=== PATIENT | male | born 1985 | race Caucasian/White ===

== ENCOUNTER 2017-06-27 18:54 | Emergency (ER) | payer OTHER ==
[2017-06-27] MEDS ORDERED: Aspirin Low Dose CHEW TAB* 81 MG PO ONE (19:49)
[2017-06-27 20:16] LABS: Hematocrit 40 % (42-52); Hemoglobin 13.2 g/dl (14.0-18.0); Mean Corpuscular HGB Conc 33 g/dl (31-36); Mean Corpuscular Hemoglobin 27 pg (27-31); Mean Corpuscular Volume 82 fL (80-94); Mean Platelet Volume 8 um3 (7.4-10.4); Red Blood Count 4.84 10^6/ul (4.0-5.4); Red Cell Distribution Width 15 % (10.5-15); White Blood Count 8.3 10^3/ul (3.5-10.8)
[2017-06-27 20:30] LABS: Potassium 3.5 mmol/L (3.5-5.0)
--- NOTE | 2017-06-27 20:30 | RAD ---
INDICATION: Chest pain. COMPARISON: There are no prior studies available for comparison. TECHNIQUE: A portable view of the chest was obtained. FINDINGS: Cardiac and mediastinal contours appear to be within normal limits. The lungs are underinflated and clear. No pleural effusion is seen. IMPRESSION: NO EVIDENCE FOR ACUTE DISEASE.
[2017-06-27 20:31] LABS: BUN/Creatinine Ratio 8.6 (8-20); Calcium 9.3 mg/dL (8.6-10.3); EGFR Non-African American 80.9 (>60); Globulin 2.5 g/dL (2-4); Magnesium 2.1 mg/dL (1.9-2.7); Total Bilirubin 0.4 mg/dL (0.2-1.0); Total Protein 6.5 g/dL (6.4-8.9)
[2017-06-27 20:33] LABS: Troponin I 0.02 ng/mL (<0.04)
[2017-06-27 20:56] LABS: TSH (Thyroid Stimulating Horm) 1.07 mcIU/mL (0.34-5.60)
--- NOTE | 2017-06-28 00:21 | ED ---
Elena Velasco Thomas, scribed for Jaswinder Aranda on 06/27/17 at 1957 . HPI Chest Pain - HPI Summary HPI Summary: The pt is a 32 y/o M presenting to the ED c/o a 15-minute episode of CP that woke him up this morning at 03:00. The pain was located in his central chest. The pain radiated to his left shoulder. The pain was described as burning. The pain was aggravated by nothing. His pain was alleviated by NTG. Pt additionally c/o mild SOB and mild dizziness throughout the day. Pt denies leg swelling and anxiety. He is on hydralazine and labetalol. PMHx includes HTN and GERD. The patient has been having episodes of CP for the last month. He was diagnosed with Atrial Septal Defect about a month ago. An echocardiogram has been performed but he has not yet had a stress test. - History of Current Complaint Chief Complaint: EDChestPainROMI Time Seen by Provider: 06/27/17 19:16 Hx Obtained From: Patient Onset/Duration: Started Hours Ago - onset today at 03:00, Resolved Timing: Lasting Minutes - 15 Initial Severity: Moderate Current Severity: None Pain Intensity: 0 Pain Scale Used: 0-10 Numeric Chest Pain Location: Mid Sternal Chest Pain Radiates: Yes Chest Pain Radiates To:: Shoulder - L Character: Burning Aggravating Factor(s): Nothing Alleviating Factor(s): NTG 123 Associated Signs and Symptoms: Positive: Other: - SOB, dizziness; NEGATIVE: leg swelling, anxiety Related History: Similar Episode/Dx as: - episodes of CP over the last three months - Allergy/Home Medications Allergies/Adverse Reactions: Allergies Allergy/AdvReac Type Severity Reaction Status Date / Time Lidocaine Allergy Hives Verified 06/27/17 19:01 PMH/Surg Hx/FS Hx/Imm Hx Previously Healthy: No Cardiovascular History: Reports: Hx Hypertension, Other Cardiovascular Problems/ Disorders - Hx atrial septal defect, HTN GI History: Reports: Hx Gastroesophageal Reflux Disease Infectious Disease History: No Infectious Disease History: Denies: Traveled Outside the US in Last 30 Days - Family History Known Family History: Positive: Hypertension, Other - [place] (aunt from [place] at 42) - Social History Alcohol Use: None Substance Use Type: Reports: None Smoking Status (MU): Never Smoked Tobacco Review of Systems Positive: Chest Pain Positive: Shortness Of Breath - mild Negative: Other - Leg swelling Neurological: Other - Mild dizziness Negative: Anxious All Other Systems Reviewed And Are Negative: Yes Physical Exam - Summary Physical Exam Summary: Appearance: Well appearing, no pain distress Skin: warm, dry, reflects adequate perfusion Head/face: normal Eyes: EOMI, DESIRAE ENT: normal Neck: supple, non-tender Respiratory: CTA, breath sounds present Cardiovascular: Bradycardia, regular rhythm, pulses symmetrical Abdomen: non-tender, soft Bowel: present Musculoskeletal: normal, strength/ROM intact Neuro: normal, sensory motor intact, A&Ox3 Triage Information Reviewed: Yes Vital Signs On Initial Exam: Initial Vitals Temp Pulse Resp BP Pulse Ox 98.3 F 63 12 164/102 97 06/27/17 18:55 06/27/17 18:55 06/27/17 18:55 06/27/17 18:55 06/27/17 18:55 Vital Signs Reviewed: Yes - Clinton Coma Scale Coma Scale Total: 15 Diagnostics - Vital Signs Vital Signs Temp Pulse Resp BP Pulse Ox 06/27/17 19:07 62 11 159/99 97 06/27/17 18:55 98.3 F 63 12 164/102 97 - Laboratory Lab Results: Lab Results 06/27/17 06/27/17 06/27/17 Range/Units 20:05 20:05 20:05 WBC 8.3 (3.5-10.8) 10^3/ul RBC 4.84 (4.0-5.4) 10^6/ul Hgb 13.2 L (14.0-18.0) g/dl Hct 40 L (42-52) % MCV 82 (80-94) fL MCH 27 (27-31) pg MCHC 33 (31-36) g/dl RDW 15 (10.5-15) % Plt Count 203 (150-450) 10^3/ul MPV 8 (7.4-10.4) um3 Neut % (Auto) 61.2 (38-83) % Lymph % (Auto) 26.9 (25-47) % Amelia % (Auto) 8.7 (1-9) % Eos % (Auto) 2.4 (0-6) % Baso % (Auto) 0.8 (0-2) % Absolute Neuts (auto) 5.1 (1.5-7.7) 10^3/ul Absolute Lymphs (auto) 2.2 (1.0-4.8) 10^3/ul Absolute Monos (auto) 0.7 (0-0.8) 10^3/ul Absolute Eos (auto) 0.2 (0-0.6) 10^3/ul Absolute Basos (auto) 0.1 (0-0.2) 10^3/ul Absolute Nucleated RBC 0.01 10^3/ul Nucleated RBC % 0.1 INR (Anticoag Therapy) 0.94 (0.89-1.11) APTT 22.3 L (26.0-36.3) seconds D-Dimer, Quantitative < 200 (Less Than 230) ng/mL Sodium (133-145) mmol/L Potassium (3.5-5.0) mmol/L Chloride (101-111) mmol/L Carbon Dioxide (22-32) mmol/L Anion Gap (2-11) mmol/L BUN (6-24) mg/dL Creatinine (0.67-1.17) mg/dL Est GFR ( Amer) (>60) Est GFR (Non-Af Amer) (>60) BUN/Creatinine Ratio (8-20) Glucose (70-100) mg/dL Calcium (8.6-10.3) mg/dL Magnesium (1.9-2.7) mg/dL Total Bilirubin (0.2-1.0) mg/dL AST (13-39) U/L ALT (7-52) U/L Alkaline Phosphatase (34-104) U/L Troponin I (<0.04) ng/mL B-Natriuretic Peptide 47 ( - 100) pg/mL Total Protein (6.4-8.9) g/dL Albumin (3.2-5.2) g/dL Globulin (2-4) g/dL Albumin/Globulin Ratio (1-3) TSH (0.34-5.60) mcIU/mL 06/27/17 06/27/17 Range/Units 20:05 23:13 WBC (3.5-10.8) 10^3/ul RBC (4.0-5.4) 10^6/ul Hgb (14.0-18.0) g/dl Hct (42-52) % MCV (80-94) fL MCH (27-31) pg MCHC (31-36) g/dl RDW (10.5-15) % Plt Count (150-450) 10^3/ul MPV (7.4-10.4) um3 Neut % (Auto) (38-83) % Lymph % (Auto) (25-47) % Amelia % (Auto) (1-9) % Eos % (Auto) (0-6) % Baso % (Auto) (0-2) % Absolute Neuts (auto) (1.5-7.7) 10^3/ul Absolute Lymphs (auto) (1.0-4.8) 10^3/ul Absolute Monos (auto) (0-0.8) 10^3/ul Absolute Eos (auto) (0-0.6) 10^3/ul Absolute Basos (auto) (0-0.2) 10^3/ul Absolute Nucleated RBC 10^3/ul Nucleated RBC % INR (Anticoag Therapy) (0.89-1.11) APTT (26.0-36.3) seconds D-Dimer, Quantitative (Less Than 230) ng/mL Sodium 139 (133-145) mmol/L Potassium 3.5 (3.5-5.0) mmol/L Chloride 107 (101-111) mmol/L Carbon Dioxide 27 (22-32) mmol/L Anion Gap 5 (2-11) mmol/L BUN 9 (6-24) mg/dL Creatinine 1.05 (0.67-1.17) mg/dL Est GFR ( Amer) 104.0 (>60) Est GFR (Non-Af Amer) 80.9 (>60) BUN/Creatinine Ratio 8.6 (8-20) Glucose 101 H (70-100) mg/dL Calcium 9.3 (8.6-10.3) mg/dL Magnesium 2.1 (1.9-2.7) mg/dL Total Bilirubin 0.40 (0.2-1.0) mg/dL AST 21 (13-39) U/L ALT 25 (7-52) U/L Alkaline Phosphatase 77 (34-104) U/L Troponin I 0.02 0.01 (<0.04) ng/mL B-Natriuretic Peptide ( - 100) pg/mL Total Protein 6.5 (6.4-8.9) g/dL Albumin 4.0 (3.2-5.2) g/dL Globulin 2.5 (2-4) g/dL Albumin/Globulin Ratio 1.6 (1-3) TSH 1.07 (0.34-5.60) mcIU/mL Result Diagrams: 06/27/17 20:05 06/27/17 20:05 Lab Statement: Any lab studies that have been ordered have been reviewed, and results considered in the medical decision making process. - Radiology CXR Xray Interpretation: No Acute Changes - No acute changes. ED physician has reviewed this report and agrees. Radiology Interpretation Completed By: Radiologist - EKG 19:15 Cardiac Rate: Bradycardia EKG Rhythm: Sinus Bradycardia EKG Interpretation: 53 BPM. No acute changes. Chest Pain Course/Dx - Course Assessment/Plan: The pt is a 22 y/o M presenting to the ED c/o a 15-minute episode of CP with radiation to his left shoulder that woke him up this morning at 03:00. He was diagnosed with Atrial Septal Defect about a month ago. He was given ASA in the ED course. Bloodwork was obtained. EKG shows sinus bradycardia with no acute changes. CXR shows no acute disease. The patient is diagnosed with atypical chest pain and Hx of ASD. Patient will be discharged home with follow up by primary care. - Chest Pain Differential Diagnosis/HQI/PQRI: Acute [place], Angina, Chest Wall, Lower Respiratory Infection, Other: - pneumonia - Diagnoses Provider Diagnoses: Atypical chest pain, History of atrial septal defect Discharge - Discharge Plan Condition: Stable Disposition: HOME Patient Education Materials: Chest Pain (ED) Referrals: [facility] [place] PHYSICIAN REFERRAL [Outside] - 7 Days Additional Instructions: PLEASE MAKE AN APPOINTMENT TO SEE YOUR PRIMARY CARE DOCTOR TO BE SEEN WITHIN 1 WEEK. PLEASE RETURN TO THE ED FOR ANY WORSENING OR CONCERNING SYMPTOMS. The documentation as recorded by the Elena woodruff Thomas accurately reflects the service I personally performed and the decisions made by Manoj bravo Emmanuel.
[2017-06-28 00:41] VITALS: BP 161/92
== END 2017-06-28 00:35 | disposition home or self-care (01) ==
LOC: ED 18:54
DX: R07.89 Other chest pain (principal); Q21.1 Atrial septal defect; I10 Essential (primary) hypertension; K21.9 Gastro-esophageal reflux disease without esophagitis
CPT/HCPCS: 36415; 71010; 80053; 83735; 83880; 84443; 84484; 85025; 85379; 85610; 85730; 93005; 99284; A9270-GY

== ENCOUNTER 2017-06-30 21:45 | Observation (INO) | payer OTHER ==
[2017-06-30 22:31] LABS: Hematocrit 39 % (42-52); Mean Corpuscular HGB Conc 34 g/dl (31-36); Mean Corpuscular Hemoglobin 27 pg (27-31); Mean Corpuscular Volume 82 fL (80-94); Mean Platelet Volume 8 um3 (7.4-10.4); Red Blood Count 4.74 10^6/ul (4.0-5.4); Red Cell Distribution Width 15 % (10.5-15); White Blood Count 8.2 10^3/ul (3.5-10.8)
[2017-06-30 22:47] LABS: Albumin 4.1 g/dL (3.2-5.2); BUN/Creatinine Ratio 9.3 (8-20); Calcium 9.5 mg/dL (8.6-10.3); EGFR African American 101.7 (>60); EGFR Non-African American 79.1 (>60); Globulin 2.4 g/dL (2-4); Total Bilirubin 0.3 mg/dL (0.2-1.0); Total Protein 6.5 g/dL (6.4-8.9)
[2017-07-01] MEDS ORDERED: Morphine INJ* 4 MG/ML 1 ML CARPUJECT IV ONE (00:11)
--- NOTE | 2017-07-01 01:06 | ED ---
HPI Chest Pain - HPI Summary HPI Summary: 32M w/ PMH of HTN and ASD presents with chest pain for 1 hour. He states that he is being worked up by billing collections specialist in [place] for ASD. He states has been having SOB when walking up the stairs today which is new. He was seen here three days ago for similar symptoms. The pain is located in the same area. It was in the center of his chest and radiates to the left arm. He states what is different this time as it did not resolve with ASA and 3 nitros. He was nauseous. He states that has history of HTN that there are having a hard time controlling. He states at the initial onset he had SOB and felt diaphoretic. He states still has chest pressure. The pressure is 6/10. He states that is suppose to have TOSHA scheduled. He has not had a stress test as need nuclear stress test due to knee injury. He states passed on the TOSHA may do surgery for ASD as has significant left to right shunt. His has significant cardiac family history with uncle had a heart attack at 39. grandfather at 56. He was seen here three days ago and had neg d-dimer, normal bnp. He is not a smoker. He is no diabetic. - History of Current Complaint Chief Complaint: EDChestPainROMI Time Seen by Provider: 06/30/17 21:54 Pain Intensity: 5 - Allergy/Home Medications Allergies/Adverse Reactions: Allergies Allergy/AdvReac Type Severity Reaction Status Date / Time Lidocaine Allergy Hives Verified 06/30/17 22:04 PMH/Surg Hx/FS Hx/Imm Hx Endocrine/Hematology History: Denies: Hx Anticoagulant Therapy Cardiovascular History: Reports: Hx Hypertension, Other Cardiovascular Problems/ Disorders - Hx atrial septal defect, HTN GI History: Reports: Hx Gastroesophageal Reflux Disease - Immunization History Date of Tetanus Vaccine: utd Date of Influenza Vaccine: none Infectious Disease History: No Infectious Disease History: Denies: Traveled Outside the US in Last 30 Days - Family History Known Family History: Positive: Cardiac Disease, Hypertension, Other - [place] (aunt from [place] at 42) - Social History Alcohol Use: None Substance Use Type: Reports: None Smoking Status (MU): Never Smoked Tobacco Review of Systems Negative: Fever Positive: Chest Pain Positive: Shortness Of Breath. Negative: Cough All Other Systems Reviewed And Are Negative: Yes Physical Exam Triage Information Reviewed: Yes Vital Signs On Initial Exam: Initial Vitals Temp Pulse Resp BP Pulse Ox 98.1 F 63 16 162/88 96 06/30/17 22:03 06/30/17 22:03 06/30/17 22:03 06/30/17 22:03 06/30/17 22:03 Vital Signs Reviewed: Yes Appearance: Positive: Well-Appearing Skin: Positive: Warm, Dry Head/Face: Positive: Normal Head/Face Inspection Eyes: Positive: Normal, EOMI, DESIRAE, Conjunctiva Clear ENT: Positive: Normal ENT inspection, Pharynx normal, TMs normal Respiratory/Lung Sounds: Positive: Clear to Auscultation, Breath Sounds Present Cardiovascular: Positive: Normal, RRR Abdomen Description: Positive: Nontender, Soft Bowel Sounds: Positive: Present Musculoskeletal: Positive: Normal Neurological: Positive: Normal Psychiatric: Positive: Normal - Clinton Coma Scale Coma Scale Total: 15 Diagnostics - Vital Signs Vital Signs Temp Pulse Resp BP Pulse Ox 07/01/17 00:46 12 06/30/17 22:03 98.1 F 63 16 162/88 96 - Laboratory Lab Results: Lab Results 06/30/17 06/30/17 06/30/17 Range/Units 22:27 22:27 22:27 WBC 8.2 (3.5-10.8) 10^3/ul RBC 4.74 (4.0-5.4) 10^6/ul Hgb 13.0 L (14.0-18.0) g/dl Hct 39 L (42-52) % MCV 82 (80-94) fL MCH 27 (27-31) pg MCHC 34 (31-36) g/dl RDW 15 (10.5-15) % Plt Count 225 (150-450) 10^3/ul MPV 8 (7.4-10.4) um3 Neut % (Auto) 52.4 (38-83) % Lymph % (Auto) 33.7 (25-47) % Elk % (Auto) 9.2 H (1-9) % Eos % (Auto) 3.9 (0-6) % Baso % (Auto) 0.8 (0-2) % Absolute Neuts (auto) 4.3 (1.5-7.7) 10^3/ul Absolute Lymphs (auto) 2.8 (1.0-4.8) 10^3/ul Absolute Monos (auto) 0.7 (0-0.8) 10^3/ul Absolute Eos (auto) 0.3 (0-0.6) 10^3/ul Absolute Basos (auto) 0.1 (0-0.2) 10^3/ul Absolute Nucleated RBC 0.01 10^3/ul Nucleated RBC % 0.1 Sodium 140 (133-145) mmol/L Potassium 3.0 L (3.5-5.0) mmol/L Chloride 105 (101-111) mmol/L Carbon Dioxide 27 (22-32) mmol/L Anion Gap 8 (2-11) mmol/L BUN 10 (6-24) mg/dL Creatinine 1.07 (0.67-1.17) mg/dL Est GFR ( Amer) 101.7 (>60) Est GFR (Non-Af Amer) 79.1 (>60) BUN/Creatinine Ratio 9.3 (8-20) Glucose 104 H (70-100) mg/dL Lactic Acid 1.0 (0.5-2.0) mmol/L Calcium 9.5 (8.6-10.3) mg/dL Total Bilirubin 0.30 (0.2-1.0) mg/dL AST 17 (13-39) U/L ALT 20 (7-52) U/L Alkaline Phosphatase 77 (34-104) U/L Troponin I 0.00 (<0.04) ng/mL Total Protein 6.5 (6.4-8.9) g/dL Albumin 4.1 (3.2-5.2) g/dL Globulin 2.4 (2-4) g/dL Albumin/Globulin Ratio 1.7 (1-3) Result Diagrams: 06/30/17 22:27 06/30/17 22:27 Lab Statement: Any lab studies that have been ordered have been reviewed, and results considered in the medical decision making process. - Radiology No standard instances Xray Interpretation: No Acute Changes Radiology Interpretation Completed By: ED Physician - EKG No standard instances Cardiac Rate: NL EKG Rhythm: Sinus Rhythm ST Segment: Normal EKG Interpretation: sinus rhythm, similiar to previous Chest Pain Course/Dx - Course Course Of Treatment: 32M w/ PMH of HTN and ASD presents with chest pain for 1 hour. He states that he is being worked up by billing collections specialist in [place] for ASD. He states has been having SOB when walking up the stairs today which is new. He was seen here three days ago for similar symptoms. The pain is located in the same area. It was in the center of his chest and radiates to the left arm. He states what is different this time as it did not resolve with ASA and 3 nitros. He was nauseous. He states that has history of HTN that there are having a hard time controlling. He states at the initial onset he had SOB and felt diaphoretic. He states still has chest pressure. The pressure is 6/10. He states that is suppose to have TOSHA scheduled. He has not had a stress test as need nuclear stress test due to knee injury. He states passed on the TOSHA may do surgery for ASD as has significant left to right shunt. His has significant cardiac family history with uncle had a heart attack at 39. grandfather at 56. He was seen here three days ago and had neg d-dimer, normal bnp. He is not a smoker. He is no diabetic. on exam heart RRR, lungs CTA. ekg same as previous. troponin neg. due to risk factors discussed with dr singleton who agrees to admit. patient signed out ama. - Chest Pain Differential Diagnosis/HQI/PQRI: Acute HI, Chest Wall, Pulmonary Embolism - Diagnoses Provider Diagnoses: Chest pain Discharge - Discharge Plan Condition: Stable Disposition: AGAINST MEDICAL ADVICE
[2017-07-01 01:45] VITALS: BP 167/93
[2017-07-01] MEDS ORDERED: Ondansetron INJ* 2 MG/ML VIAL IV PRN (01:53)
[2017-07-01] MEDS ORDERED: Acetaminophen TAB* 325 MG PO PRN (01:53)
[2017-07-01] MEDS ORDERED: Al Hydrox/Mg Hydrox/Simet LIQ* 30 ML UDC PO PRN (01:53)
[2017-07-01] MEDS ORDERED: traZODone TAB* 100 MG PO PRN (01:57)
[2017-07-01] MEDS ORDERED: Potassium Chlor TAB* 20 MEQ TAB.ER PO ONE (02:08)
--- NOTE | 2017-07-01 03:06 | PN ---
Progress Note - Progress Note Date of Service: 07/01/17 Note: Patient decided that he did not want to be admitted. I expressed my concern that this is his 4th ED visit for chest pain and with his family history that its worthwhile to do a stress test. He is seeing his welding lead burner this week for a TOSHA but no stress test is set up. Patient decided to return to [facility].
--- NOTE | 2017-07-01 03:35 | HP ---
CC: Dr. Ramirez Mata, [place], [place] * HISTORY AND PHYSICAL: DATE OF ADMISSION: 07/01/17 TIME OF EVALUATION: 0100. PRIMARY CARE PHYSICIAN: Dr. Mata in [place], [place]. CHIEF COMPLAINT: Chest pain. HISTORY OF PRESENT ILLNESS: This is a 32-year-old male with past medical history of hypertension recently diagnosed with ASD, who presents to the emergency room with chest pain. The patient was in the emergency room on the for similar symptoms. The patient has been an inpatient in [facility] after having a DWI. He states he was watching TV around 9:50 p.m. when he developed left-sided chest pressure radiating to his left shoulder. He had some associated shortness of breath and some nausea. He states he has been getting chest pain off and on. He has been to the emergency room several times in [place] with a negative workup. He has not had a stress test, although he is planning to get one scheduled after he has a TOSHA. He was recently diagnosed with an ASD, had a bubble study about 2-1/2 weeks ago with field machinist in [place] , Dr. Randolph, where he was noted to have a left to right shunt and is planning to get a TOSHA done. The patient denies any changes in his weight. He has some right lower extremity swelling. He denies any exertional activity and no indigestion. He has not been physically active since he broke his patella back in August with a work injury. His chest pain is currently 3/10, otherwise remaining review of systems is negative. Also of note, the patient took several sublingual nitro, did not make much difference in his chest pain. PAST MEDICAL HISTORY: 1. Hypertension. 2. ASD. Plan is for getting a TOSHA with Dr. Randolph in [place]. 3. GERD. 4. Diastolic dysfunction. 5. PTSD. MEDICATIONS: 1. Protonix 20 mg p.o. daily. 2. Labetalol 300 mg p.o. t.i.d. 3. Hydralazine 100 mg p.o. t.i.d. 4. Celexa 20 mg p.o. daily. 5. Trazodone 100 mg at bedtime. 6. Nitro sublingual as needed. ALLERGIES: LIDOCAINE, develops hives. FAMILY HISTORY: Grandfather in his 50s from an [place]. Paternal aunt at age 39 from an [place]. Both of his parents are alive, both have hypertension. 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 No smoking. No longer using alcohol. As mentioned, he is in [facility] for a DWI. His healthcare proxy are his parents. CODE STATUS: Full code. REVIEW OF SYSTEMS: A 14-point review of systems reviewed; pertinent positives and negatives as mentioned in the HPI, otherwise negative. PHYSICAL EXAMINATION GENERAL: No acute distress, resting comfortably. VITAL SIGNS: Temp 98.1, pulse rate 59, respiratory rate 13, oxygen saturation 97 % on room air, blood pressure 161/93. HEENT: Head: Normocephalic. Pupils equal and reactive. Anicteric. Oropharynx: Mucous membranes are moist. NECK: Supple. No lymphadenopathy. No nuchal rigidity. RESPIRATORY: Clear to auscultation. No wheezing, rhonchi, or rales. CARDIAC: Regular rate and rhythm. Fixed S2 splitting. No murmurs, rubs, or gallops. ABDOMEN: Soft, nontender, nondistended. EXTREMITIES: No clubbing, cyanosis, or edema. NEUROLOGIC: Alert and oriented x3. No focal neurologic deficits. LABORATORY DATA: White count 8.2, hemoglobin 13, hematocrit 39, platelets 225, 000. Sodium 140, potassium 3.0, chloride 105, bicarb 27, BUN 10, creatinine 1.07 , glucose 104. Troponin is 0 x2. RADIOGRAPHIC DATA: Shows normal sinus rhythm. Chest x-ray on wet read is unremarkable. EKG shows normal sinus rhythm with no significant changes. ASSESSMENT: This is a 32-year-old male with past medical history of hypertension, atrial septal defect with significant cardiac family history, who presents with recurrent episodes of chest pain. 1. Chest pain. Assessment: Admit for rule out acute coronary syndrome. Plan : Trend his troponin. Check his lipid panel. Check hemoglobin A1c. Replete his potassium. Chemical stress test as patient has a broken patella. Of note, the patient is scheduled to get a TOSHA later this week to further assess his atrial septal defect. CHRONIC MEDICAL PROBLEMS: 1. Hypertension. Resume his home medications. 2. Gastroesophageal reflux disease. Resume omeprazole in place of Protonix. 3. Posttraumatic stress disorder. Resume citalopram and trazodone. 4. FEN: Keep him n.p.o. for nuclear stress test. 5. Disposition: Place him in the CDU unit. We will consult social work as the patient was inpatient at [facility], although he is being planned to be discharged today, 07/01/17. 6. Code status: Full code. TIME SPENT: Greater than 50 minutes was spent doing history and physical, more than half the time spent in direct patient contact. [id number]/CPS #: [id number] LEANDRO
[2017-07-01 04:26] LABS: Magnesium 2.1 mg/dL (1.9-2.7)
[2017-07-01] MEDS ORDERED: Omeprazole CAP* 20 MG PO SCH (06:00)
--- NOTE | 2017-07-01 07:19 | RAD ---
INDICATION: Chest pain. COMPARISON: Comparison is made with a prior chest x-ray study from June 27, 2017. TECHNIQUE: A portable view of the chest was obtained. FINDINGS: Cardiac and mediastinal contours appear to be within normal limits. The lungs are clear. No pleural effusion is seen. IMPRESSION: NO EVIDENCE FOR ACUTE DISEASE.
[2017-07-01] MEDS ORDERED: Aspirin EC Low Dose* 81 MG TAB.EC PO SCH (09:00)
[2017-07-01] MEDS ORDERED: Labetalol TAB* 300 MG PO SCH (09:00)
[2017-07-01] MEDS ORDERED: Citalopram TAB* 20 MG PO SCH (09:00)
[2017-07-01] MEDS ORDERED: hydrALAZINE TAB* 100 MG ** ONE HUNDRED PO SCH (09:00)
== END 2017-07-01 03:00 | disposition left against medical advice (07) ==
LOC: ED 21:45 → MEDTELE 07-01 01:53
PROVIDERS: ADMIT Pediatrics; ATTEND Pediatrics
DX: R07.9 Chest pain, unspecified (principal); I10 Essential (primary) hypertension; Q21.1 Atrial septal defect; K21.9 Gastro-esophageal reflux disease without esophagitis; I51.89 Other ill-defined heart diseases; F43.10 Post-traumatic stress disorder, unspecified; Z79.899 Other long term (current) drug therapy; R06.02 Shortness of breath
CPT/HCPCS: 36415; 71010; 80053; 83036; 83605; 83735; 84484; 85025; 93005; 96374; 99282; A9270-GY; G0378; J2270